=== PATIENT | female | born 1985 | race Caucasian/White ===

== ENCOUNTER 2020-11-06 22:15 | Inpatient (IN) | payer SELFPAY ==
[2020-11-06 23:05] VITALS: BP 152/116; PULSE 97; RESP 18; TEMP 36.4; O2SAT 97
[2020-11-06 23:06] VITALS: BMI 26.4
[2020-11-07] MEDS: acetaminophen 500 mg Tablet 1000 MG PO (00:05)
[2020-11-07 00:06] VITALS: BP 152/116
[2020-11-07] MEDS: cloNIDine 0.1 mg Tablet PO ×2 (00:06→21:09)
[2020-11-07] MEDS: predniSONE 20 mg Tablet PO ×2 (00:06→08:12)
[2020-11-07] MEDS: quetiapine 100 mg Tablet PO ×2 (00:06→21:09)
--- NOTE | 2020-11-07 00:32 | PC.NURSE ---
Laceration left wrist, stitched prior to transfer, edges are intact, wound closed. No active sign of infection noted, wound is normal temperature, edges are pink and well defined. pt complaint of pain d/t arrival in hand cuffs. Redressed the wound with a guaze and tegaderm dressing on arrival.
--- NOTE | 2020-11-07 00:49 | PC.NURSE ---
35/F depression/SI Voluntary direct admit from [facility], pt has been unable to see normal psychiatrist. Pt is experiencing financial stress d/t the loss of her job and the inability to find another one. Pt was stressed, cut her left wrist, this is stitched, dressing changed on arrival. Pt states, I did not want to kill myself, I did this as a reaction to believing that they wanted to take her to a mental facility. Pt denies SI.
[2020-11-07 05:50] VITALS: BP 105/71; PULSE 79; RESP 18; TEMP 36.2; O2SAT 96
[2020-11-07] MEDS: lamoTRIgine 25 mg Tablet PO (08:12)
[2020-11-07] MEDS: venlafaxine ER (24HR) 75 mg Capsule PO (08:12)
[2020-11-07] MEDS: BuSPIRONE 10 mg Tablet 15 MG PO ×2 (08:12→17:29)
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
--- NOTE | 2020-11-07 13:32 | NPU.GN ---
[facility] Group Topic: Communication General Mood of Group: Patient refused group today.
[2020-11-07 14:00] VITALS: BP 111/65; PULSE 55; RESP 18; TEMP 36.6; O2SAT 97
[2020-11-07 20:28] VITALS: BP 130/81; PULSE 98; RESP 18; TEMP 37.3; O2SAT 95
[2020-11-08 06:00] VITALS: BP 116/78; PULSE 67; RESP 18; TEMP 36.9; O2SAT 96
[2020-11-08] MEDS: venlafaxine ER (24HR) 75 mg Capsule PO (08:51)
[2020-11-08] MEDS: BuSPIRONE 10 mg Tablet 15 MG PO (08:51)
[2020-11-08] MEDS: predniSONE 20 mg Tablet PO (08:51)
[2020-11-08] MEDS: lamoTRIgine 25 mg Tablet PO (08:51)
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
[2020-11-08 12:31] VITALS: BP 116/78; PULSE 67; RESP 18; TEMP 36.9; O2SAT 96
--- NOTE | 2020-11-08 18:31 | PC.RESP ---
Smoking Cessation information sent to patient.
== END 2020-11-08 17:28 | disposition home or self-care (01) | DRG 881 ==
PROVIDERS: Admitting Provider Psychiatry & Neurology Psychiatry; Visit Provider Psychiatry & Neurology Psychiatry
DX: F32.9 Major depressive disorder, single episode, unspecified (principal); R45.851 Suicidal ideations; Z81.8 Family history of other mental and behavioral disorders
CPT/HCPCS: J7512